=== PATIENT | male | born 1980 | race Caucasian/White ===

== ENCOUNTER 2025-01-19 20:22 | Emergency (ER) | payer BC, SELFPAY ==
[2025-01-19 20:33] VITALS: BP 135/89
[2025-01-19] MEDS: BENADRYL 50 MG PO (20:37)
[2025-01-19 22:58] VITALS: BMI 29.2
[2025-01-19] MEDS: DELTASONE 40 MG PO (23:38)
--- NOTE | 2025-01-20 00:26 | ED.SKININJ ---
HPI-Injury
General
Chief Complaint: Bite
Source: patient
Exam Limitations: none
Time Seen by Provider: 01/19/25 23:09
Nursing documentation reviewed up to this point in time: agreed with
History of Present Illness-Injury
Is this injury a work related problem?: No
Is pt an associate of [facility]/[place]?: No
Initial Injury comments:
Patient states he was stung by a bee below right lat ankle yesterday. reports increasing swelling today. Advised by PCP office to come to ED.
Past History
Past History
ED Past Medical History: None
ED Past Surgical History: None
Review of Systems
Review of Systems
Allergies reviewed?: Yes
All Other Systems: ROS reviewed and negative except as documented in HPI and ROS
Constitutional: Reports no symptoms
EENT: Reports no symptoms
Respiratory: Reports no symptoms
Cardiac: Reports no symptoms
ABD/GI: Reports no symptoms
Musculoskeletal: Reports joint swelling (swelling to right foot and ankle from bee sting)
Skin: Reports other (bee sting right ankle)
Neurological: Reports no symptoms
Psychiatric: Reports no symptoms
Skin Exam
Bee Sting
Right Ankle:
Surrounding area around sting/bite has: no evidence of erythema and other (Moderate amt of swelling to right foot and ankle.)
Phy Exam
General Physical Exam
General Presentation: well appearing and no apparent distress
General age: appears stated age
General Skin: warm and dry
General Habitus: normal
General Mental: alert
Musculoskeletal Exam
Musculoskeletal Exam: full ROM and neuro vasc intact
Skin Exam
Skin Exam: normal color, warm/dry, no rash and other (No evidence of cellulitis to right foot/ankle)
Psychiatric Exam
Psychiatric Exam: normal mood/affect
Course
Orders/Labs/Results
Orders:
Orders
01/19/25 20:28
Diphenhydramine [Benadryl] 50 mg .ROUTE .STK-MED ONE
01/19/25 20:36
Diphenhydramine [Benadryl] 50 mg PO NOW STA
01/19/25 23:21
Prednisone [Deltasone] 40 mg PO NOW STA
Vital Signs
Initial and Last Documented VS:
Initial Vital Signs
Temp Pulse Resp BP Pulse Ox
97.9 F 77 18 135/89 98
01/19/25 20:33 01/19/25 20:33 01/19/25 20:33 01/19/25 20:33 01/19/25 20:33
Last Documented Vital Signs
Temp Pulse Resp BP Pulse Ox
97.9 F 77 18 135/89 98
01/19/25 20:33 01/19/25 20:33 01/19/25 20:33 01/19/25 20:33 01/19/25 20:33
*Pulse Oximetry
SaO2: 98
Oxygen Mode of Delivery: Room air
Patient hypoxic: no
*Critical Care Note
Total Time (30-74mins, 75-104mins- exclusive of procedures): Not Applicable
Update Note
Update Note:
Patient to ED for swelling to right foot and ankle after bee sting yesterday. Left foot/ankle neurovaasc. intact. NO redness, no drainage. Recommend continuing bendaryl prn itching. WIll add short course of prednisone, He is discharged home and
will follow up with PCP
ED Attending Note
-
Portions of this chart may have been created with voice recognition software.� Occasional wrong word or��sound alike� substitutions may have occurred due to the inherent limitations of voice recognition software.
Discharge Plan
Departure
Patient Disposition: Home (Routine Discharge)
Date of Disposition: 01/19/25
Time of Disposition: 23:22
Patient with high blood pressure during this ER visit?: No
Condition: Good
Covid-19: Not Applicable
Discharge Problem:
Bee sting
Instructions: Insect Bites and Stings (DC), How to Do an Ice Massage
Prescriptions:
New
prednisone 20 mg tablet
40 mg PO DAILY Qty: 8 0RF
Referrals:
Evangelina Anderson MD [Family Provider, Family Practice]
Activity Restrictions/Additional Instructions:
Follow up with your family doctor.
Interventions
Interventions:
*Risk Screen - Suicide Last Done: 01/19/25 20:33
*General Assessment Last Done: 01/19/25 22:58
*Neglect/Abuse Screening Last Done: 01/19/25 22:58
*ED- Fall Risk Assessment Last Done: 01/19/25 22:58
*ED COVID-19 Vaccine History Last Done: 01/19/25 22:58
*Nursing Disposition Last Done: 01/19/25 23:57
ED-Skin Assessment Last Done: 01/19/25 22:58
Discharge Date and Time
Discharge Date/Time: 01/19/25 23:57
Print Language: ESTONIAN
== END 2025-01-19 23:57 | disposition home or self-care (01) ==
LOC: EMR 20:22
PROVIDERS: EMERGENCY PHYSICIAN Student in an Organized Health Care Education/Training Program; FAMILY PHYSICIAN Family Medicine
DX: T63.441A Toxic effect of venom of bees, accidental (unintentional), initial encounter (principal); X58.XXXA Exposure to other specified factors, initial encounter
CPT/HCPCS: 99283